=== PATIENT | female | born 1985 | race Caucasian/White ===

== ENCOUNTER 2018-11-09 19:11 | Inpatient (IN) | payer OTHER ==
[~2018-11-09] VITALS: Ht 160 cm; Wt 73.0 kg
[~2018-11-09 19:11] MED LIST: DSS100 PO; IBUP-2070 PO; PREN1TAB80 PO
[2018-11-09 19:53] VITALS: BP 103/58
[2018-11-09] MEDS ORDERED: RINGERS SOLUTION,LACTATED 1,000 ML IV ONE (20:47)
[2018-11-09] MEDS ORDERED: OXYTOCIN 30 UNITS/LACT RINGERS 500 ML IV ONE (20:52)
[2018-11-09] MEDS ORDERED: RINGERS SOLUTION,LACTATED 1,000 ML IV PRN (20:52)
[2018-11-09] MEDS ORDERED: CITRIC ACID/SODIUM CITRATE 30 ML SOLUTION UDCUP PO PRN (21:00)
[2018-11-09] MEDS ORDERED: METOCLOPRAMIDE HCL 5 MG/ML 2 ML VIAL IVP PRN (21:00)
[2018-11-09] MEDS ORDERED: FentaNYL CITRATE-PF 100 MCG/2 ML VIAL IVP PRN (21:00)
[2018-11-09] MEDS: RINGERS SOLUTION,LACTATED 1,000 ML IV SCH ×3 (21:02→23:04)
[2018-11-09 21:35] LABS: BASOPHILS % (AUTO) 0.2 % (0.0-2.0); EOSINOPHILS % (AUTO) 0.3 % (1.0-6.0); HEMATOCRIT 36.7 % (36-46); HEMOGLOBIN 12.7 g/dL (12.0-16.0); LYMPHOCYTES % (AUTO) 21.5 % (22.0-44.0); MEAN CORPUSCULAR HEMOGLOBIN 30.3 pg (26.0-34.0); MEAN CORPUSCULAR HGB CONC 34.7 G/dL (31.0-37.0); MEAN CORPUSCULAR VOLUME 87 fL (80-100); MONOCYTES # (AUTO) 0.6 K/uL (0.1-1.0); MONOCYTES % (AUTO) 5.9 % (2.0-9.0); NEUTROPHILS # (AUTO) 6.8 K/uL (1.8-7.7); NEUTROPHILS % (AUTO) 72.1 % (40.0-70.0); PLATELET COUNT (AUTO)-OB 251 K/uL (150-450); RED BLOOD CELL COUNT(AUTO) 4.21 MIL/uL (4.00-5.20); RED CELL DISTRIBUTION WIDTH 15.3 % (11.5-14.5)
[2018-11-09] MEDS ORDERED: ROPIVACAINE HCL/PF 0.2% 100 ML ED ONE (21:36)
[2018-11-09] MEDS ORDERED: LIDOCAINE/PF 2% 5 ML VIAL ONE (21:36)
[2018-11-09] MEDS ORDERED: NALBUPHINE HCL 10 MG/ML VIAL IVP PRN (22:00)
[2018-11-09] MEDS ORDERED: ROPIVACAINE HCL/PF 0.2% 100 ML ED PRN (22:00)
[2018-11-09] MEDS ORDERED: DiphenhydrAMINE HCL 50 MG/ML VIAL IVP PRN (22:00)
[2018-11-09] MEDS ORDERED: ONDANSETRON HCL 4 MG/2 ML VIAL IVP PRN (22:00)
[2018-11-10] MEDS ORDERED: POVIDONE-IODINE 10% 240 ML SOLUTION TP ONE (00:09)
[2018-11-10] MEDS ORDERED: RINGERS SOLUTION,LACTATED 1,000 ML IV ONE (00:52)
[2018-11-10] MEDS ORDERED: BENZOCAINE 20%/MENTHOL 56 GM SPRAY CANISTER TP PRN (01:00)
[2018-11-10] MEDS ORDERED: GLYCERIN/WITCH HAZEL LEAF 40 PADS JAR TP PRN (01:00)
[2018-11-10] MEDS ORDERED: LANOLIN 7 GM OINTMENT TP PRN (01:00)
[2018-11-10] MEDS ORDERED: MEASLES/MUMPS/RUBELLA VACCINE, LIVE 0.5 ML/VIAL SQ ONE (01:00)
[2018-11-10] MEDS ORDERED: OxyCODONE HCL/ACETAMINOPHEN 5-325 MG TABLET PO PRN ×2 (01:00)
[2018-11-10] MEDS: IBUPROFEN 600 MG TABLET PO PRN ×3 (03:48→19:00)
[2018-11-10] MEDS ORDERED: OXYGEN THERAPY IH SCH (08:00)
[2018-11-10] MEDS ORDERED: IBUP-2071 PO ×2 (09:26→09:28)
[2018-11-10] MEDS ORDERED: DSS100 PO (09:27)
[2018-11-10] MEDS ORDERED: FERR-89 PO (09:27)
[2018-11-10] MEDS: MAGNESIUM HYDROXIDE SUSPENSION 30 ML UDCUP PO SCH ×2 (11:57→20:48)
[2018-11-11] MEDS: IBUPROFEN 600 MG TABLET PO PRN (08:11)
[2018-11-11] MEDS: MAGNESIUM HYDROXIDE SUSPENSION 30 ML UDCUP PO SCH (08:11)
[2018-11-11] MEDS ORDERED: IBUP-2071 PO (11:07)
== END 2018-11-11 12:05 | disposition home or self-care (01) | DRG 807 ==
LOC: OBSVTOIN 19:11 → 4S 19:11
PROVIDERS: ADMIT Obstetrics & Gynecology; ATTEND Obstetrics & Gynecology
PROC: 10E0XZZ Delivery of Products of Conception, External Approach (ICD-10-PCS; principal; 2018-11-10)
PROC: 0KQM0ZZ Repair Perineum Muscle, Open Approach (ICD-10-PCS; 2018-11-10)
PROC: 3E0R3BZ Introduction of Anesthetic Agent into Spinal Canal, Percutaneous Approach (ICD-10-PCS; 2018-11-10)
PROC: 00HU33Z Insertion of Infusion Device into Spinal Canal, Percutaneous Approach (ICD-10-PCS; 2018-11-10)
DX: O69.81X0 Labor and delivery complicated by cord around neck, without compression, not applicable or unspecified (principal); Z37.0 Single live birth; O70.1 Second degree perineal laceration during delivery; Z3A.38 38 weeks gestation of pregnancy
CPT/HCPCS: 86850; 86900; 86901; J2590; J2795; J3490; J7120